=== PATIENT | female | born 1935 | race Caucasian/White ===

== ENCOUNTER 2018-06-05 10:20 | Inpatient (IN) ==
--- NOTE | 2018-06-05 12:05 | Diag Imaging Result Doc PS360 ---
EXAM: CHEST-PORTABLE HISTORY: CP TECHNIQUE: Portable chest single view COMPARISON: None. FINDINGS: The lungs are well expanded. The heart is mildly prominent. There is vascular distention. No consolidation. No pleural effusions identified. IMPRESSION: Increased interstitial markings believed to be pulmonary edema Electronically signed by Reese Das 06/05/2018 12:02 PM
[2018-06-05 12:11] LABS: ALLEN TEST YES; BE 0.4 mmoll (-3.0-3.0); BLOOD TYPE ARTERIAL; HCO3-(ACT) 25.2 mmoll (20.0-26.0); METHB 1.5 % (0.0-1.5); O2(CT) 11.3 mL/dL (15.0-23.0); PCO2(98.6) 35 mmHg (35-45); PO2(98.6) 68 mmHg (60-100); SAMPLE BLOOD; SAO2 95.8 % (95.0-100.0); THB 8.7 g/dL (11.5-17.4); pH(98.6) 7.45 (7.35-7.45)
[2018-06-05 12:12] LABS: MODALITY ROOM AIR
[2018-06-05 12:29] LABS: INR 0.94; PROTIME 13.4 Seconds (11.0-16.0); PTT 34.6 Seconds (22.3-41.8)
[2018-06-05 12:35] LABS: AGAP 11; BASO# 0.06 X1000 (0.0-0.2); BASO% 0.8 % (0.0-0.8); BUN 14 mg/dL (8-22); CALCIUM 8.8 mg/dL (8.8-10.2); CHLORIDE 97 mmol/L (98-107); CK PROFILE 19 U/L (24-173); COSMO 268; CREATININE 0.7 mg/dL (0.5-0.9); EOS# 0.31 X1000 (0.0-0.7); EOS% 4.4 % (0.0-10.0); ESTIMATED GFR > 60; GLUCOSE 124 mg/dL (70-104); HEMATOCRIT 28.7 % (37.0-47.0); HEMOGLOBIN 8.9 g/dL (12.0-16.0); IMM GRAN# 0.04 X1000 (0.0-0.04); IMM GRAN% 0.6 % (0.0-0.5); LYMPH# 1.02 X1000 (1.2-3.4); LYMPH% 14.3 % (20.5-51.1); MAGNESIUM 2.4 mg/dL (1.5-2.7); MCV 96.6 FL (81-99); MONO# 0.69 X1000 (0.11-0.59); MONO% 9.7 % (1.7-9.3); NEUT% 70.2 % (42.2-75.2); PLT 231 X1000 (130-400); POTASSIUM 4.4 mmol/L (3.5-5.1); RBC 2.97 XMIL (4.2-5.4); RDW 15.7 % (11.5-14.5); SODIUM 133 mmol/L (136-145); TCO2 25 mmol/L (25-35); WBC 7.12 X1000 (4.8-10.8)
--- NOTE | 2018-06-05 14:08 | PROVIDER DOCUMENTATION ---
This chart was entered by Oliva Bartholomew Scribe, acting as scribe for Josef Gonzales MD. HPI-Respiratory General - General Chief Complaint: Shortness of Breath Stated Complaint: SOB/CHEST PRESSURE/HEART PT/ Time Seen by Provider: 06/05/18 11:35 Source: patient, family Allergies/Adverse Reactions: Patient Allergies Allergy/AdvReac Type Severity Reaction Status Date / Time codeine Allergy Unknown Verified 12/27/15 07:09 ibuprofen Allergy Unknown Verified 12/27/15 07:09 meperidine HCl * Allergy Unknown Verified 12/27/15 07:09 [From Demerol] Home Medications: Home Medication List Medication Instructions Recorded Confirmed Last Taken Type Acetaminophen [Arthritis Pain] 650 mg PO DAILY 12/27/15 12/27/15 12/26/15 21:00 History Ascorbic Acid [Vitamin C] 1,000 mg PO DAILY 12/27/15 12/27/15 12/26/15 History Aspirin 81 mg PO BID 12/27/15 12/27/15 12/26/15 21:00 History Cinnamon Bark [Cinnamon] 2,000 mg PO DAILY 12/27/15 12/27/15 12/26/15 History Diltiazem C.d. [Cardizem C.d] 240 mg PO DAILY 12/27/15 12/27/15 12/27/15 05:30 History Enalapril Maleate 20 mg PO DAILY 12/27/15 12/27/15 12/27/15 05:30 History Fish Oil/Dha/Epa [Fish Oil 1,200 1 each PO DAILY 12/27/15 12/27/15 12/26/15 21:00 History mg Fish Oil] Gabapentin 300 mg PO QHS 12/27/15 12/27/15 12/26/15 21:00 History Hydrochlorothiazide 25 mg PO DAILY 12/27/15 12/27/15 12/27/15 05:30 History Iron,Carbonyl [Iron] 45 mg PO DAILY 12/27/15 12/27/15 12/26/15 History Meloxicam [Mobic] 25 mg PO DAILY 12/27/15 12/27/15 12/26/15 21:00 History Vit C/E/Zn/Coppr/Lutein/Zeaxan 2 each PO DAILY 12/27/15 12/27/15 12/26/15 21:00 History [Preservision Areds 2 Softgel] - History of Present Illness-Resp Nature of Presenting Problem: 82 yowf presents to [facility] ed with c/o worsening sob onset 6 weeks prior. pt sts last 2 weks has noticed sx worsening with lying flat and exertion. pt on exam is nontoxic in appearance and speaking in complete sentences.pt had echo done yesterday by cardiology request Quality of Pain: reports: fullness Severity in ED: reports: moderate (08/05) Onset/Duration: reports: other (6 weks) Timing: reports: intermittent, getting worse Exposure: reports: unknown cause Cough Quality/Degree: reports: mild Episode Frequency: frequent episodes Current Respiratory Medication Therapy: Initiated see nurses note Modifying Factors: improves with: rest, sitting upright. worse with: exertion, lying down Associated Symptoms: reports: chest pain/soreness (fullness), cough, shortness of breath. denies: hurts to breathe Similar Symptoms Previously?: Yes Recently seen or treated by another doctor?: Yes Review of Systems - Adult - REVIEW OF SYSTEMS - ADULT Constitutional: reports: fatique. denies: chills, fever Eyes: reports: no symptoms reported Ears, Nose, Mouth & Throat: reports: no symptoms reported Cardiovascular: reports: see HPI, chest pain (fullness/pressure), heart murmur, orthopnea Respiratory: reports: see HPI, cough, dyspnea on exertion, shortness of breath, wheezing Gastrointestinal: reports: no symptoms reported Genitourinary: reports: no symptoms reported Musculoskeletal: denies: back pain, neck pain Integumentary: reports: no symptoms reported Neurological: denies: dizziness/vertigo, headache/migraines Psychiatric: reports: no symptoms reported Endocrine: reports: no symptoms reported Hematologic/Lymphatic: reports: no symptoms reported Allergic/Immunologic: reports: no symptoms reported All Other Systems: Reviewed and Negative Past History - Adult - PAST MEDICAL HISTORY-ADULT Review of Records: reports: Nursing Assessment Review, Medications Reviewed Major Childhood Illnesses: reports: denies history Cardiovascular: reports: CAD, HTN, murmur Respiratory: reports: denies history Gastrointestinal: reports: GERD, other (hernia) Obstetrical/Gynecological: reports: denies history Genitourinary: reports: denies history Musculoskeletal: reports: denies history Hand Dominance: Right Handed Neurological: reports: CVA Psychiatric: reports: denies history Endocrine/Immune: reports: denies history Other Conditions: reports: blindness (left eye), cataract/glaucoma - PRIOR SURGERIES/PROCEDURES Surgical/Procedure History: reports: hernia repair, orthopedic (extremity) - IMMUNIZATION STATUS Childhood Immunizations: See Nurse Assessment Flu Vaccine: See Nurse Assessment - FAMILY HISTORY Family History: reviewed, not pertinent - SOCIAL HISTORY Smoking: denies Substance Use: denies Living Situation: family Physical Exam-General - PHYSICAL EXAM-ADULT Initial Vital Signs Reviewed: Yes - CONSTITUTIONAL General Appearance: appears well, alert, no apparent distress - EYES Eyes: pink conjunctivae, other (blind in left eye) - HEAD, EARS, NOSE, MOUTH & THROAT HENMT: moist mucous membranes, normal ENT inspection - NECK Neck: non-tender, full range of motion, supple, normal inspection - RESPIRATORY Respiratory: no pleuratic chest pain, no respiratory distress, no accessory muscle use, wheezing - CARDIOVASCULAR Cardiovascular: normal peripheral pulses, regular rate, rhythm - GASTROINTESTINAL (ABDOMEN) Abdominal Exam: normal bowel sounds, non tender, soft - LYMPHATIC Lymphatic: no adenopathy - MUSCULOSKELETAL Back Exam: normal inspection, no CVA tenderness, no vertebral tenderness Extremity: normal range of motion, non-tender, no pedal edema, no calf tenderness, normal capillary refill, pelvis stable - SKIN Integumentary: normal color, normal turgor, warm/dry - NEUROLOGIC Neurologic: grossly normal, no motor/sensory deficits - PSYCHIATRIC Psych/Mental Status: normal mood/affect, normal thought content, normal thought process, oriented x 3 Progress - PLAN OF CARE/RESULTS Progress/Plan/Lab Results: Vital Signs - 8 hr 06/05/18 10:29 06/05/18 10:56 06/05/18 12:06 Temperature 98 F Pulse Rate 67 71 67 Respiratory Rate 18 24 29 H Blood Pressure 145/77 144/95 139/71 O2 Sat by Pulse Oximetry 98 96 94 L 06/05/18 12:14 Influenza Screen - Final Nasopharyngeal Laboratory Results - last 24 hr 06/05/18 06/05/18 06/05/18 11:00 11:00 11:00 WBC 7.12 RBC 2.97 L Hgb 8.9 L Hct 28.7 L MCV 96.6 MCH 30.0 MCHC 31.0 L RDW Std Deviation 15.7 H Plt Count 231 MPV 9.0 Immature Gran % (Auto) 0.6 H Neut % (Auto) 70.2 Lymph % (Auto) 14.3 L Barron % (Auto) 9.7 H Eos % (Auto) 4.4 Baso % (Auto) 0.8 Immature Gran # (Auto) 0.04 Neut # (Auto) 5.00 Lymph # (Auto) 1.02 L Barron # (Auto) 0.69 H Eos # (Auto) 0.31 Baso # (Auto) 0.06 PT INR PTT (Actin FS) Specimen Type Sample Site pH pCO2 pO2 HCO3 Base Excess Oxyhemoglobin ABG O2 Sat (Calculated) ABG O2 Saturation ABG Carboxyhemoglobin ABG Methemoglobin Liborio Test A-a O2 Difference Total Hemoglobin Lactate Blood Gas Modality FiO2 % Sodium 133 L Potassium 4.4 Chloride 97 L Carbon Dioxide 25 Anion Gap 11 BUN 14 Creatinine 0.7 Estimated GFR/1.73 m2 > 60 BUN/Creatinine Ratio 20 Glucose 124 H Calculated Osmolality 268 Calcium 8.8 Magnesium 2.4 Creatine Kinase 19 L Troponin T [id number]-Gfxpdyusjer Pept 4271 H 06/05/18 06/05/18 06/05/18 11:00 11:00 12:02 WBC RBC Hgb Hct MCV MCH MCHC RDW Std Deviation Plt Count MPV Immature Gran % (Auto) Neut % (Auto) Lymph % (Auto) Barron % (Auto) Eos % (Auto) Baso % (Auto) Immature Gran # (Auto) Neut # (Auto) Lymph # (Auto) Barron # (Auto) Eos # (Auto) Baso # (Auto) PT 13.4 INR 0.94 PTT (Actin FS) 34.6 Specimen Type ARTERIAL Sample Site R RADIAL pH 7.45 pCO2 35 pO2 68 HCO3 25.2 Base Excess 0.4 Oxyhemoglobin 92.0 L ABG O2 Sat (Calculated) 11.3 L ABG O2 Saturation 95.8 ABG Carboxyhemoglobin 2.60 H ABG Methemoglobin 1.5 Liborio Test YES A-a O2 Difference 38.0 Total Hemoglobin 8.7 L Lactate 1.00 Blood Gas Modality ROOM AIR FiO2 % 21.0 Sodium Potassium Chloride Carbon Dioxide Anion Gap BUN Creatinine Estimated GFR/1.73 m2 BUN/Creatinine Ratio Glucose Calculated Osmolality Calcium Magnesium Creatine Kinase Troponin T < 0.010 Bfs-F-Nfgyvhrxdbb Pept Orders Category Date Time Status Cardiac Monitoring DIRECTED Care 06/05/18 11:47 Active Saline Loc NOW Care 06/05/18 11:47 Active CHEST-PORTABLE [RAD] Stat Exams 06/05/18 11:50 Completed ABG [RESP] Routine Lab 06/05/18 12:02 Completed BMP [BASIC METABOLIC PANEL] [CHEM] Stat Lab 06/05/18 11:00 Completed CBC WITH ELECTRONIC DIFF [HEME] Stat Lab 06/05/18 11:00 Completed CK PROFILE [SP CHEM] Stat Lab 06/05/18 11:00 Completed INFLUENZA SCREEN A/B Stat Lab 06/05/18 12:14 Completed MAGNESIUM [CHEM] Stat Lab 06/05/18 11:00 Completed PRO B-NATRIURETIC PEPTIDE Stat Lab 06/05/18 11:00 Completed PROTIME WITH INR [COAG] Stat Lab 06/05/18 11:00 Completed PTT [COAG] Stat Lab 06/05/18 11:00 Completed TROPONIN T Stat Lab 06/05/18 11:00 Completed URINALYSIS W/POSS RFLX CULT [URINALYSIS] Stat Lab 06/05/18 11:50 Uncollected Furosemide [Lasix] Med 06/05/18 14:00 Active 40 mg IV Q12H Transfer/Admit Order [TRANSFER] Routine Transfer 06/05/18 13:57 Ordered Result Diagrams: 06/05/18 11:00 06/05/18 11:00 - REASSESSMENT Reassessment #1 Time Reassessed: 12:14 Status: improving - EKG 1 Time of EKG reading by physician:: 11:37 EKG Read and Signed by:: Josef Gonzales EKG Interpretation (*Must complete 3 of following elements*): Abnormal Rate: 65 Rhythm: sinus rhythm w/ pac Cardwell: left (deviation) QRS: RBB [place] Interval: normal ST Wave: normal Comments: T wave abnormality, consider lateral ischemia 2 Time of EKG reading by physician:: 12:20 EKG Read and Signed by:: Josef Gonzales EKG Interpretation (*Must complete 3 of following elements*): Abnormal Rate: 74 Rhythm: sinus rhythm w/ occ pvc and pac Cardwell: normal QRS: other (low voltage qrs) [place] Interval: normal ST Wave: normal Comments: cannoot rule out anterior infarct, age undetemined - XRAY 1 XRAY: Bilateral XRAY Study: Chest Impression: See EMR Report (EXAM: CHEST-PORTABLE HISTORY: CP TECHNIQUE: Portable chest single view COMPARISON: None. FINDINGS: The lungs are well expanded. The heart is mildly prominent. There is vascular distention. No consolidation. No pleural effusions identified. IMPRESSION: Increased interstitial markings believed to be pulmonary edema Electronically signed by Reese Das 06/05/2018 12:02 PM 06/05/18 1202 Interpreting Physician: Reese Das MD Dictated Date/Time: 06/05/18 1202 cc: Josef Gonzales MD; Ivan Whalen) - CONSULTS/PCP/HOSPITALIST Notification #1 *Consult/PCP/Hospitalist*: dr segovia cardio Time Discussed: 13:12 Reason/Comments: wants pt admitted to hospitalist and dr segovia will consult #2 Consult: hospitalist dr morales Time Discussed: 13:49 Consult Disposition: Admit Departure - Departure Date of Disposition Decision: 06/05/18 Time of Disposition Decision: 14:06 DIAGNOSIS: SOB (shortness of breath), Pulmonary edema, Aortic stenosis Disposition: ADMITTED INPATIENT 09 Certified Medical Emergency: Emergent Condition: Stable Referrals and Follow-Ups: Ivan Whalen [Primary Care Provider] - - Critical Care Note This patient required my direct & personal management of CC.: No Attestation - Physician/ ROCIO Attestation Patient care was provided by Advanced Practice Provider:: No The physician spent face to face time with patient:: Yes Advanced Practice Provider documentation review:: Supervising physician onsite and consulted in the evaluation and care of this patient. The physician did have a face to face encounter with the patient. This chart was documented by the indicated scribe, (Oliva Bartholomew Scribe) and accurately reflects the services I performed and decisions made by me, Josef Gonzales MD, as attested by the provider's signature.
[2018-06-05] MEDS: LASIX IV SCH (14:13)
[2018-06-05 14:17] LABS: URINE SOURCE CLEAN CATCH
[2018-06-05 14:24] LABS: BILIRUBIN URINE NEGATIVE (NEGATIVE); BLOOD URINE NEGATIVE (NEGATIVE); COLOR YELLOW; GLUCOSE URINE NEGATIVE (NEGATIVE); KETONE URINE NEGATIVE (NEGATIVE); LEUKOCYTES URINE TRACE (NEGATIVE); NITRITE URINE NEGATIVE (NEGATIVE); PH URINE 7.5; PROTEIN URINE NEGATIVE (NEGATIVE); SP GRAVITY URINE 1.007; TURBIDITY URINE HAZY (CLEAR); UR EPITHELIAL CELLS <10 /HPF (<10); URINE BACTERIA NEGATIVE /HPF; URINE RBC <10 /HPF (<10); URINE WBC <10 /HPF (<10); UROBILINOGEN URINE NORMAL (NORMAL)
--- NOTE | 2018-06-05 15:25 | HISTORY AND PHYSICAL ---
PRIMARY CARE PHYSICIAN: Dr. Ivan Whalen. CHIEF COMPLAINT: Worsening shortness of breath over the past 2 weeks. HISTORY OF PRESENTING ILLNESS: This is an 82-year-old female who presents to [facility] ER with complaints of shortness of breath over the past 6 weeks but worsened over the past 2 weeks. States she is unable to lie down flat and has to keep the head of her bed raised every night, has shortness of breath with exertion that is resolved with rest. She had an outpatient echocardiogram done yesterday that showed an ejection fraction of 65% with normal left ventricular function. Diastolic function is probably impaired due to high velocities of her E-wave. Her workup today showed a proBNP of 4271. Her O2 saturation was noted to be 98% on room air, and so she will be admitted for further evaluation and treatment. PAST MEDICAL HISTORY: Coronary artery disease, hypertension, heart murmur, GERD, CVA, left eye blindness and glaucoma. PAST SURGICAL HISTORY: Hernia repair. FAMILY HISTORY: Reviewed and noncontributory. SOCIAL HISTORY: She currently lives with family. Denies any tobacco, alcohol or illicit drug use. ALLERGIES: To codeine, ibuprofen and meperidine. HOME MEDICATIONS: A current list will need to be obtained, reconciled and reviewed, and restarted as appropriate. I will place an order for nursing to update and confirm home medications. LABORATORY DATA: White blood cell count of 7.12, hemoglobin 8.9, hematocrit 28.7, and platelets 231,000. PT and INR of 13.4 and 0.94. ABG with a pH of 7.45, pCO2 35, PO2 68, bicarb 25.2, and this was on room air. Sodium 133, potassium 4.4, chloride 97, CO2 25, BUN of 14, creatinine 0.7, glucose 124, and magnesium of 2.4. Troponin was negative at less than 0.010. ProBNP of 4271. Urinalysis was negative. Chest x-ray showed increased interstitial markings believed to be pulmonary edema. REVIEW OF SYSTEMS: She denied any fever, chills, blurred vision, or dizziness. She denied any chest pain or coughing. She had increasingly worsening shortness of breath, orthopnea. Shortness of breath is worse with exertion. Denied any abdominal pain, constipation, diarrhea, burning or hurting with urination. PHYSICAL EXAMINATION: On arrival, showed a temperature of 98 degrees, pulse 67, respirations 18, blood pressure 145/77 and saturating 98% on room air. GENERAL: This is an 82-year-old female who is sitting up in the bed and answers questions appropriately. HEENT: Normocephalic, atraumatic. Normal ENT inspection. Oropharynx and nares are clear. EYES: Pupils are equal, round, reactive to light and accommodation. Extraocular movements are intact. Eyes: Pupils are equal, round, and reactive to light and accommodation. Extraocular movements are intact. NECK: Normal inspection. Normal range of motion. LUNGS: Clear to auscultation bilaterally with equal lung expansion and chest wall movement. HEART: Noted systolic murmur at grade 3/6. ABDOMEN: Soft, nontender, and nondistended. Bowel sounds are present x4 quadrants. MUSCULOSKELETAL: She had 5/5 strength x4 extremities. NEUROLOGICAL: The cranial nerves 2-12 appear grossly intact. ASSESSMENT: 1. Acute diastolic congestive heart failure exacerbation. 2. Pulmonary edema. 3. Hypertension. 4. Gastroesophageal reflux disease. PLAN: She is being admitted to the medical unit, and placed on telemetry. We will consult Cardiology. Place on Lasix 40 mg IV q.12. Place an indwelling Varma catheter. Healthy heart diet. Update and confirm home medications per nursing, and will review and restart as appropriate. Recheck a CBC and BMP in the morning. Further orders after seen by attending and by environmental remediation consultant. Dictated by GAVIOTA Tao for David Suggs MD cc: MD Erin Earl CRNP Clement Okinedo, MD Patient seen and evaluated by me. I agree with the assessment and plan. Dr. suggs. NY[facility]ANG[facility]ALTH SYSTEMShlomo
[2018-06-05] MEDS ORDERED: TYLENOL PO PRN (19:43)
[2018-06-05] MEDS ORDERED: ZOFRAN IV PRN (19:43)
--- NOTE | 2018-06-05 22:06 | CONSULTATION ---
DATE OF CONSULTATION: 06/05/2018 CARDIOLOGY CONSULTATION: IMPRESSION: 1. Pulmonary edema. 2. Very severe aortic stenosis. 3. Hypertension. RECOMMENDATIONS: 1. Diurese with intravenous Lasix. 2. Ultimately, patient will need to be considered for intervention on her very severe aortic stenosis with TAVR procedure. HISTORY: This 82-year-old white female with past history of aortic stenosis and hypertension was admitted with progressive dyspnea and recent orthopnea with radiographic studies suggesting pulmonary edema. She has known aortic stenosis and very recent echocardiography that indicated significant progression of aortic stenosis. This study was actually performed yesterday. She has been followed regularly by her hematology technologist, Dr. Everton Ross. She recently had followup and had echocardiography performed yesterday which indicated progression of her aortic stenosis which is very severe at this point. She has had some occasional periods when she felt unusual exertional shortness of breath. However, over the last week or so she has had more consistent exertional shortness of breath. Last night, she experienced some shortness of breath and tightness in the chest when she would lie back, and she felt better when she would sleep on several pillows. With persistent dyspnea symptoms, she came in for evaluation today and was found to have pulmonary edema. PAST MEDICAL HISTORY: 1. Hypertension. 2. Aortic stenosis. 3. Gastroesophageal reflux. 4. Glaucoma and left eye blindness. 5. Previous cerebrovascular accident. PAST SURGICAL HISTORY: Includes hernia repair, bilateral carpal tunnel release, cataract extraction. ALLERGIES: She is allergic or intolerant to codeine, ibuprofen, and meperidine. MEDICATIONS PRIOR TO ADMISSION: As listed. SOCIAL HISTORY: She lives with family. She has never smoked and does not use alcohol. FAMILY HISTORY: Negative for premature coronary artery disease. REVIEW OF SYSTEMS: Pulmonary: Noteworthy for progressive dyspnea symptoms as noted above. Gastrointestinal: Noncontributory beyond history of present illness. Constitutional: Noncontributory beyond history of present illness. Remainder of review of systems negative/noncontributory beyond history present illness with 14 total systems reviewed. PHYSICAL EXAMINATION: General: This is a pleasant, older, white female in no distress. Vital signs: Blood pressure 131/84, heart rate 72, oxygen saturation 94% presently. HEENT: Extraocular movements intact. Mucous membranes are moist. Neck: Supple without jugular venous distention. There are no carotid bruits. Chest: Auscultation of the chest reveals a few bibasilar inspiratory crackles. Cardiac Exam: Reveals a regular rate and rhythm with a grade 3/6 crescendo/decrescendo systolic murmur at the right upper sternal border. First heart sound is normal. Second heart sound cannot be heard. Gallop could not be appreciated. Abdomen: Soft, nontender. Bowel sounds are normal. Extremities: Without edema. Neurologic: Reveals her to be alert and fully oriented. Speech is fluent. She moves all 4 extremities equally well. Skin: Warm and dry. Psychiatric: Reveals mood to be appropriate. LABORATORY DATA: Includes a white blood cell count 7.12, hematocrit 28.7, hemoglobin 8.9, platelet count 231,000. Pro time 13.4, INR 0.94, PTT 34.6. Sodium 133, potassium 4.4, chloride 97, carbon dioxide 25, BUN 14, creatinine 0.7. Glucose 124. Troponin T less than 0.01. Pro-B natriuretic peptide level 4271. Recent echocardiography report indicates borderline concentric left hypertrophy. Estimated left ejection fraction 65%. Very severe aortic stenosis with calculated aortic valve area 0.5 cm2. [id number] mitral regurgitation demonstrated. There is also reported mild mitral stenosis. cc: Estiven Monte MD
[2018-06-06] MEDS: LASIX IV SCH (02:23)
[2018-06-06 06:05] LABS: BASO# 0.05 X1000 (0.0-0.2); BASO% 0.6 % (0.0-0.8); EOS# 0.18 X1000 (0.0-0.7); EOS% 2.1 % (0.0-10.0); HEMATOCRIT 29.6 % (37.0-47.0); HEMOGLOBIN 9.1 g/dL (12.0-16.0); LYMPH# 1.04 X1000 (1.2-3.4); MCH 30.1 PG (27-31); MCHC 30.7 g/dL (33-37); MONO# 0.78 X1000 (0.11-0.59); NEUT# 6.63 X1000 (1.4-6.5); NEUT% 76.3 % (42.2-75.2); PLT 253 X1000 (130-400); RBC 3.02 XMIL (4.2-5.4); RDW 16.2 % (11.5-14.5); WBC 8.68 X1000 (4.8-10.8)
[2018-06-06 06:29] LABS: AGAP 13; BUN 10 mg/dL (8-22); CALCIUM 8.5 mg/dL (8.8-10.2); CHLORIDE 100 mmol/L (98-107); COSMO 274; CREATININE 0.6 mg/dL (0.5-0.9); ESTIMATED GFR > 60; GLUCOSE 126 mg/dL (70-104); POTASSIUM 3.7 mmol/L (3.5-5.1); SODIUM 137 mmol/L (136-145); TCO2 24 mmol/L (25-35)
[2018-06-06 06:36] LABS: IRON SATURATION 7 %; TIBC 364 ug/dL; TOTAL IRON 25 ug/dL (49-151); UNBOUND IRON 339 ug/dL (112-346)
[2018-06-06 07:09] LABS: ALB/GLOB RATIO 1.8; ALBUMIN 4.1 g/dL (3.5-5.0); DIRECT BILIRUBIN 0.1 mg/dL (0.00-0.20); TOTAL BILIRUBIN 0.33 mg/dL (0.20-1.00); TOTAL PROTEIN 6.4 g/dL (6.3-8.3)
--- NOTE | 2018-06-06 11:24 | EKG Report ---
Test Performed on : 06/05/2018 10:23:13 AM Test Reason : ED. No order in [place] Blood Pressure : / mmHG Vent. Rate : 066 BPM Atrial Rate : 066 BPM P-R Int : 160 ms QRS Dur : 140 ms QT Int : 476 ms P-R-T Axes : 041 -34 004 degrees QTc Int : 499 ms Normal sinus rhythm. Left axis deviation Right bundle branch block T wave abnormality, consider lateral ischemia Abnormal ECG No previous ECGs available Unconfirmed Result
--- NOTE | 2018-06-06 11:25 | EKG Report ---
Test Performed on : 06/05/2018 11:07:51 AM Test Reason : ED. No order in [place] Blood Pressure : / mmHG Vent. Rate : 065 BPM Atrial Rate : 065 BPM P-R Int : 182 ms QRS Dur : 138 ms QT Int : 488 ms P-R-T Axes : 078 -37 -09 degrees QTc Int : 507 ms Sinus rhythm. with premature atrial complexes. Left axis deviation Right bundle branch block T wave abnormality, consider lateral ischemia Abnormal ECG When compared with ECG of 05-JUN-2018 10:23, (Unconfirmed) premature atrial complexes. are now present Unconfirmed Result
--- NOTE | 2018-06-06 11:25 | EKG Report ---
Test Performed on : 06/05/2018 11:58:34 AM Test Reason : ED. No order in [place] Blood Pressure : / mmHG Vent. Rate : 074 BPM Atrial Rate : 074 BPM P-R Int : 184 ms QRS Dur : 068 ms QT Int : 400 ms P-R-T Axes : 078 -24 080 degrees QTc Int : 444 ms Sinus rhythm. with occasional premature ventricular complexes. and premature atrial complexes. Low voltage QRS Cannot rule out Anterior infarct , age undetermined Abnormal ECG When compared with ECG of 05-JUN-2018 11:07, (Unconfirmed) premature ventricular complexes. are now present Right bundle branch block is no longer present Minimal criteria for Anterior infarct are now present Unconfirmed Result
[2018-06-06] MEDS ORDERED: VENOFER 500 MG in NS 250 ML IV ONE (14:47)
[2018-06-06] MEDS ORDERED: GRALISE PO SCH ×2 (15:00→18:00)
--- NOTE | 2018-06-06 15:29 | PROGRESS NOTE ---
DATE: 06/06/2018 SUBJECTIVE: Patient reports no further shortness of breath on room air. There has been no further orthopnea. OBJECTIVE: Vital Signs: Blood pressure 137/60, heart rate 71, oxygen saturation 96% on room air. There is no significant jugular venous distention. Chest: Clear to auscultation. Cardiac Exam: Reveals a regular rate and rhythm with a grade 3/6 systolic murmur to the right upper sternal border. Extremities: Without edema. LABORATORY DATA: Includes a white blood cell count 8.68, hematocrit 29.6, hemoglobin 9.1, platelet count 253,000. Sodium 137, potassium 3.7, chloride 100, carbon dioxide 24, BUN 10, creatinine 0.6, glucose 126. Serum iron 25. TIBC 364%. Saturation 7%. Ferritin 66. IMPRESSION: 1. Pulmonary edema. Resolved with diuresis. 2. Very severe aortic stenosis. 3. Microcytic anemia. 4. Hypertension. RECOMMENDATIONS: 1. Transition to oral Lasix. 2. Initiate low-dose lisinopril and Coreg. 3. Administer intravenous iron supplementation. 4. If clinical improvement maintained, it would be reasonable for patient to be discharged home tomorrow. She will need prompt followup with [facility] in [place] to arrange cardiac catheterization and probable TAVR. cc: Estiven Monte MD
--- NOTE | 2018-06-06 16:12 | PROGRESS NOTE ---
DATE: 06/06/2018 SUBJECTIVE: Patient is resting comfortably in bed. She is not in any obvious distress. OBJECTIVE: Vital signs: Temperature 98.6 degrees, pulse 71, respiratory rate is 20, blood pressure 137/60, oxygen saturation is 96%. HEENT: Atraumatic, normocephalic. Cardiovascular: S1, S2 with a possible systolic murmur. Respiratory: Has evidence of good air entry bilaterally. Abdomen: Soft, nontender. No masses felt. Extremities: No evidence of significant edema. Central nervous system: No obvious focal deficit noted. LABS: WBC 8.68, hematocrit is 29.6, with a platelet count of 253,000. Sodium 137, potassium 3.7, chloride 100, bicarb 24, BUN is 10, creatinine 0.6. ASSESSMENT AND PLAN: 1. Acute diastolic heart failure complicated with pulmonary edema. Maintain patient on diuretics. Monitor I's and O's as well as daily weights. Cardiology is following. 2. Severe aortic stenosis. Cardiology is following. 3. Hypertension. Continue current antihypertensive regimen. 4. Gastroesophageal reflux disease. Maintain patient on PPI. 5. Deep vein thrombosis prophylaxis. SCD. 6. Gastrointestinal prophylaxis. PPI. cc: David Suggs MD MTDD
[2018-06-06] MEDS: COREG PO SCH (22:55)
[2018-06-07] MEDS: PROTONIX PO SCH ×2 (05:33→06:05)
[2018-06-07] MEDS: COREG PO SCH (08:47)
[2018-06-07] MEDS ORDERED: PRINIVIL PO SCH (09:00)
[2018-06-07] MEDS ORDERED: LASIX PO SCH (09:00)
[2018-06-07 12:14] VITALS: BP 99/50
--- NOTE | 2018-06-07 13:41 | DISCHARGE SUMMARY ---
ADMISSION DATE: 06/05/2018 DISCHARGE DATE: 06/07/2018 PRINCIPAL DIAGNOSIS: Acute diastolic heart failure. SECONDARY DIAGNOSES: 1. Severe aortic stenosis. 2. Hypertension. 3. Gastroesophageal reflux disease. 4. History of CVA. 5. Left eye blindness and glaucoma. DISCHARGE MEDICATIONS: Include the followin. Gabapentin 600 mg p.o. daily. 2. Lisinopril 5 mg daily. 3. Coreg 3.125 mg p.o. twice a day 4. Potassium chloride 20 mEq p.o. daily. 5. Fish Oil 1 p.o. daily. 6. Ascorbic acid 1 g daily. 7. Aspirin 81 mg daily. 8. Hydrochlorothiazide 25 mg p.o. daily.. 9. Docusate sodium 1 capsule daily. 10. Vitamin D2 1 tab daily. 11. Loratadine 1 tab daily. 12. Ferrous sulfate 1 tablet daily. 13. Tumeric root extract 1 tab daily. CONSULTATIONS: Dr. Monte, Cardiology. PROCEDURES DONE DURING THIS HOSPITAL: No major procedures done. HOSPITAL COURSE: Ms. Va Joe is an 82-year-old female who was admitted to the hospital because of shortness of breath for about 2 weeks. She was diagnosed as having acute diastolic heart failure and required diuretics. She seemed to have done well. The patient was also noted to have severe aortic stenosis. She was seen by the Cardiology team during the course of the hospital stay. Of note, she had a recent echo which showed evidence of borderline concentric LVH with estimated ejection fraction of 65%, very severe aortic stenosis with calculated aortic valve area of 0.5 cm square, mild to moderate mitral regurgitation along with mild mitral stenosis. At this time, patient has done well. She is stable. She can now be discharged home. Her diet is to be healthy heart diet. She will need to avoid strenuous activity. Patient will need to follow up with her sodium chlorite operator in the outpatient, and also need to follow up with the valve clinic in [place] for evaluation of aortic valve repair. cc: David Suggs MD MTDD
== END 2018-06-07 15:25 | disposition home or self-care (01) | DRG 291 ==
LOC: ED 10:20 → EDIPHOLD 14:45 → 4N 06-06 06:24
PROVIDERS: ATTEND Internal Medicine
CPT/HCPCS: 51702; 71010; 71045; 80048; 80076; 81001; 82550; 82728; 82805; 83540; 83550; 83615; 83735; 83880; 84484; 85025; 85610; 85730; 86850; 86900; 86901; 87088; 87275; 87276; 87804; 93005; 93306; 96374; 96376; 99285; A9270; J1756; J1940; J2405; J7050